=== PATIENT | male | born 1985 | race Caucasian/White ===

== ENCOUNTER 2022-04-09 20:10 | Emergency (ER) | payer OTHER ==
[2022-04-09 22:17] LABS: CORONAVIRUS COVID-19 NAA POSITIVE (NEGATIVE)
== END 2022-04-09 22:30 | disposition home or self-care (01) ==
LOC: JD.ED 20:10
DX: U07.1 COVID-19 (principal); Z28.310 Unvaccinated for COVID-19
CPT/HCPCS: 0240U; 99284